=== PATIENT | male | born 2000 | race Caucasian/White ===

== ENCOUNTER 2021-09-15 13:49 | Emergency (ER) | payer SELFPAY ==
[2021-09-15 13:50] VITALS: BP 138/99; PULSE 101; RESP 18; TEMP 36.7; O2SAT 96; BMI 35.9
[2021-09-15 13:55] VITALS: BP 138/99; PULSE 101; RESP 18; TEMP 36.7; O2SAT 96; BMI 35.8
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
[2021-09-15 14:26] VITALS: BP 138/99; PULSE 101; RESP 18; TEMP 36.7; O2SAT 96
== END 2021-09-15 14:55 | disposition home or self-care (01) ==
PROVIDERS: Emergency Provider Nurse Practitioner
DX: S61.411A Laceration without foreign body of right hand, initial encounter (principal)
CPT/HCPCS: 12001; 99213; G0463

== ENCOUNTER 2023-02-14 12:46 | Emergency (ER) | payer SELFPAY ==
[2023-02-14] VITALS (13 sets, daily range): BP systolic 110–139; BP diastolic 58–92; PULSE 54–78; RESP 16–18; TEMP 36.6; O2SAT 95–100; BMI 41.7
--- NOTE | 2023-02-14 13:18 | PC.NURSE ---
Allergy bracelet placed on patient's wrist.
--- NOTE | 2023-02-14 13:28 | HMH.EDGENADL ---
Discharge Plan Disposition Patient Disposition: Home, Self-Care Condition: Good Referrals Follow up/Referrals: Bob Joyce DO [Staff Physician] - See instructions (L foot/ankle pain/sprain, needs follow up) Luis Miguel Thakkar DO [Staff Physician] - See instructions (L foot pain/swelling/fall, needs PCP) Provider,Referral, [Primary Care Provider] - See instructions Activity Restrictions/Add. Instructions Additional Instructions/Restrictions: You were evaluated in the emergency department today for left foot pain. You do not have any fracture, dislocation, or other bony injury. You are appropriate for discharge at this time. You have been referred to orthopedics for outpatient follow-up. Wear the air splint as directed and use the provided crutches to help you get around. Do the range of motion exercises we discussed. Take Tylenol and ibuprofen if needed for pain, do not exceed the recommended daily doses on the bottle. Make an appointment with your primary care physician for reevaluation in 2 to 3 days, you have been referred to Dr. Thakkar for this purpose. Return to the emergency department with any new, worsening, or otherwise concerning symptoms. Clinical Impressions Clinical Impression: Ankle sprain and strain Instructions Patient Instructions: DI for Ankle Sprain Discharge ED Provider: Trino Wright General Adult HPI General Chief complaint: Extremity Injury, Lower Stated complaint: AO10/@home, pain in Lt ankle Time Seen by Provider: 02/14/23 13:05 Mode of Arrival: Ambulatory Source of Information: Patient Limitations: No Limitations Description of Symptoms (Recalled from ER Triage Doc. by RN): Patient reports stepping in a hole 1 week ago and injured his left ankle. States he has been using an jennifer wrap but the pain seems to get worse as the day goes. History of Present Illness HPI narrative: This otherwise healthy 22-year-old male presents to the emergency department with concerns of left foot/ankle pain. Patient states he stepped in a hole 1 week ago and has had pain and swelling in the left foot/ankle since that time. He demonstrates that his pain is across the medial aspect of his left foot/ankle. He is able to wiggle the toes and has sensation throughout. He states he has been taking ibuprofen intermittently for pain. Last dose was yesterday. Patient has the foot wrapped but has been able to walk on it though it is painful and worse by the end of the day. He has not seen anyone for evaluation up until this point. He came today because the pain is not going away and it continues to be persistently swollen. He denies any chronic medical conditions, no daily medications. Related Data Allergies Allergy/AdvReac Type Severity Reaction Status Date / Time acetaminophen [From Vicodin] Allergy Verified 09/15/21 14:10 diclofenac [From Voltaren] Allergy Verified 02/14/23 13:05 hydrocodone [From Vicodin] Allergy Verified 09/15/21 14:10 [facility] Disclaimer: The information contained in this section may have been updated after the patient was seen, as this information can be updated by other users. Social History Smoking Status: Current every day smoker alcohol intake: current current occupational status: other Travel in the last 8 weeks: None ROS Obtained: Yes All systems reviewed & no additional complaints except as documented Constitutional Constitutional: Denies chills, Denies fever(s), Denies headache(s) and Denies weakness Eyes Eyes: Denies change in vision ENT Ears, Nose, Mouth, and Throat: Denies dizziness, Denies headache(s), Denies nasal congestion and Denies sore throat Cardiovascular Cardiovascular: Denies chest pain, Denies dyspnea and Denies leg edema Respiratory Respiratory: Denies cough and Denies dyspnea Gastrointestinal Gastrointestingal: Denies constipation, diarrhea, nausea or vomiting Genitourinary Male Genitourinary: Denies difficulty urinating Musculoskeletal Muscul
--- NOTE | 2023-02-14 13:29 | XR_ITS ---
FINAL REPORT CLINICAL HISTORY: twisted ankle in pain COMPARISON: None FINDINGS: LEFT FOOT: Three views of the left foot were obtained. There is no acute fracture or dislocation. The joint spaces are intact. There is no soft tissue abnormality. IMPRESSION: No acute bony abnormality. Reviewed, Interpreted and Dictated by Good Lemus III, MD Transcribed by Hillary Wylie Authenticated and [facility]
--- NOTE | 2023-02-14 13:29 | XR_ITS ---
FINAL REPORT CLINICAL HISTORY: twisted ankle in pain COMPARISON: None FINDINGS: LEFT ANKLE: Three views of the left ankle were obtained. There is no acute fracture or dislocation. The joint spaces and mortise are intact. Soft tissue swelling is present. IMPRESSION: No acute bony abnormality. Reviewed, Interpreted and Dictated by Good Lemus III, MD Transcribed by Hillary Wylie Authenticated and . [facility]
--- NOTE | 2023-02-14 13:36 | PC.NURSE ---
pt to rad via wheelchair
--- NOTE | 2023-02-14 14:13 | PC.NURSE ---
rad staff reports pt xrays are in locked status
--- NOTE | 2023-02-14 15:40 | PC.NURSE ---
let pt know scans were back waiting for MD to review and go from there, no other needs at this time,call light at bs
== END 2023-02-14 15:55 | disposition home or self-care (01) ==
PROVIDERS: Emergency Provider Emergency Medicine
DX: S93.402A Sprain of unspecified ligament of left ankle, initial encounter (principal); F17.210 Nicotine dependence, cigarettes, uncomplicated; W17.2XXA Fall into hole, initial encounter
CPT/HCPCS: 73610; 73630; 99284

== ENCOUNTER 2023-10-16 21:19 | Emergency (ER) | payer SELFPAY ==
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
[2023-10-16 21:32] VITALS: BP 155/107; PULSE 82; RESP 18; TEMP 36.9; O2SAT 97
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
[2023-10-16 21:41] VITALS: BMI 41.7
[2023-10-16] MEDS: IBUPROFEN 400 MG TABLET 800 MG PO (21:43)
[2023-10-16] MEDS: CYCLOBENZAPRINE 10MG TABLET 10 MG PO (21:43)
[2023-10-16 21:49] VITALS: BP 135/90; PULSE 83; RESP 18; TEMP 36.9; O2SAT 96
== END 2023-10-16 21:51 | disposition home or self-care (01) ==
PROVIDERS: Emergency Provider Student in an Organized Health Care Education/Training Program
DX: S39.011A Strain of muscle, fascia and tendon of abdomen, initial encounter (principal); S46.811A Strain of other muscles, fascia and tendons at shoulder and upper arm level, right arm, initial encounter; S53.401A Unspecified sprain of right elbow, initial encounter; F17.210 Nicotine dependence, cigarettes, uncomplicated; V47.5XXA Car driver injured in collision with fixed or stationary object in traffic accident, initial encounter; Y92.410 Unspecified street and highway as the place of occurrence of the external cause
CPT/HCPCS: 73080; 99283

== ENCOUNTER 2024-05-10 23:23 | Emergency (ER) | payer BC, SELFPAY ==
[2024-05-10 23:36] VITALS: BP 134/96; PULSE 60; RESP 20; TEMP 36.9; O2SAT 97; BMI 44.3
--- NOTE | 2024-05-10 23:40 | PC.NURSE ---
Pt awake alert and oriented x4 Skin pink warm and dry Resp full and easy Speech clear and appropriate Pt opening eye with some difficulty due to pain. No hyphema noted, pupil round
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
[2024-05-11 00:32] VITALS: BP 134/96; PULSE 60; RESP 20; TEMP 36.8; O2SAT 97
[2024-05-11] MEDS: TETRACAINE 0.5% OPTH SOL 15ML OP (00:36)
[2024-05-11] MEDS: FLUORESCEIN SODIUM 1MG STRIP 1 MG OP (00:36)
[2024-05-11] MEDS: ERYTHROMYCIN BASE 1 GM OINT...G. OP (00:36)
== END 2024-05-11 00:34 | disposition short-term general hospital (02) ==
PROVIDERS: Emergency Provider Emergency Medicine
DX: S05.02XA Injury of conjunctiva and corneal abrasion without foreign body, left eye, initial encounter (principal); H57.12 Ocular pain, left eye; X58.XXXA Exposure to other specified factors, initial encounter; Y93.89 Activity, other specified
CPT/HCPCS: 99283

== ENCOUNTER 2024-08-06 23:38 | Emergency (ER) | payer BC, SELFPAY ==
--- NOTE | 2024-08-06 23:59 | HMH.EDGENADL ---
Discharge Plan Disposition Patient Disposition: Home, Self-Care Prescriptions Prescriptions: New amoxicillin-pot clavulanate 875-125 mg tablet 1 tab PO BID 7 Days Qty: 14 0RF No Action cyclobenzaprine 10 mg tablet 10 mg PO TID PRN (Reason: muscle spasm) 5 Days Qty: 15 0RF ibuprofen 800 mg tablet 800 mg PO TID PRN (Reason: pain) 7 Days Qty: 20 0RF Referrals Follow up/Referrals: Provider,Referral, MD [Primary Care Provider] - See instructions Activity Restrictions/Add. Instructions Additional Instructions/Restrictions: Please take antibiotics as prescribed for treatment of dental infection. Please call around tomorrow and see dentist as soon as possible. You can always go to the [facility] walk-in clinic as well. You can google their information. Please take Tylenol and ibuprofen as needed for pain, 1 g of Tylenol and 600 mg of ibuprofen every 6 hours either together or staggered. Clinical Impressions Clinical Impression: Dental infection Print Language Print Language: Puerto Rican Discharge ED Provider: Jamal Holguin General Adult HPI General Chief complaint: Dental/Oral Stated complaint: tooth pain Time Seen by Provider: 08/06/24 23:59 History of Present Illness HPI narrative: 24-year-old male with no reported past medical history presents for dental pain. Is been ongoing for the last 4 days is getting worse. He has not taken anything prior to arrival. He is not aware of any bad teeth, both the upper and lower teeth on the right side her. Related Data Previous Rx's ?Medication ?Instructions ?Recorded cyclobenzaprine 10 mg tablet 10 mg PO TID PRN muscle spasm 5 10/16/23 days #15 tabs ibuprofen 800 mg tablet 800 mg PO TID PRN pain 7 days #20 10/16/23 tabs amoxicillin 875 mg-potassium 1 tab PO BID 7 days #14 tabs 08/07/24 clavulanate 125 mg tablet Allergies Allergy/AdvReac Type Severity Reaction Status Date / Time acetaminophen (From Vicodin) Allergy Verified 09/15/21 14:10 diclofenac (From Voltaren) Allergy Verified 02/14/23 13:05 hydrocodone (From Vicodin) Allergy Verified 09/15/21 14:10 [facility] Disclaimer: The information contained in this section may have been updated after the patient was seen, as this information can be updated by other users. Social History (Updated 02/14/23 @ 16:29 by Trino Wright MD) Smoking Status: Current every day smoker alcohol intake: current current occupational status: other Travel in the last 8 weeks: None Have you lived/traveled outside US in past 30 days?: No Contact w/someone who lives/traveled outside US past 30 days?: No Exposure to someone with infectious disease in past 14 days?: No Do you have a fever (greater than 100.4 F or 38 C)?: No Have you tested positive for COVID-19: No Exposed to someone with COVID-19 in past 14 days?: No Do you have a sore throat?: No Do you have a cough?: No Do you have any weakness?: No Do you have any diarrhea?: No Are you experiencing any unusual bleeding?: No Do you have any muscle aches/pain?: No Do you have any abdominal pain?: No Are you experiencing loss of taste or smell?: No ROS Obtained: Yes All systems reviewed & no additional complaints except as documented Physical Exam General General appearance: alert and in no apparent distress Head Head exam: atraumatic, normocephalic and other (Erythema, tenderness and poor dentition with the appearance of interrupting teeth in the right maxilla. Patient also has tenderness to palpation of the mandibular teeth, though not appear infected) Eye Eye exam: Present normal appearance, PERRL and EOMI ENT ENT exam: Present normal oropharynx and normal external ear exam Neck Neck exam: Present normal inspection and full ROM Chest Chest inspection: Present normal inspection and symmetric chest wall rise; Absent tenderness Respiratory Respiratory exam: Present normal lung sounds bilaterally; Absent respiratory distress Cardiovascular Cardiovascular exam: Present regular rate and normal rhythm Abdominal Exam Abdominal exam: Present soft; Absent distention, tenderness or guarding Extremities Exam Extremities exam: Present normal inspection; Absent edema or joint swelling Back Exam Back exam: Present normal inspection; Absent tenderness Neurological Exam Neurological exam: Present alert and oriented X3; Absent motor sensory deficit Psychiatric Psychiatric exam: Present normal affect and normal mood Skin Skin exam: Present warm, dry and normal color Lymphatic Lymphatic Findings: no adenopathy Medical Decision Making Medical Records Medical records reviewed: Yes I reviewed the patient's medical records. Screening: Per USPSTF and CDC recommendations, given the prevalence of disease in our region, it is our hospital?s policy to screen for HIV and viral Hepatitis for all patients aged 18 and over and those with ongoing risk factors. [place] Inquiry Pt receiving controlled substance: No Ryland was queried for this patient: No Vital Signs: 08/07/24 00:08 Temperature 98.1 F Temperature Source Oral Pulse Rate [Apical] 66 Respiratory Rate 20 Blood Pressure [Right Arm] 135/84 Blood Pressure Mean [Right Arm] 101 02 Sat by Pulse Oximetry 95 Oxygen Delivery Method Room Air Lab Data Lab results reviewed: Yes I reviewed the patient's lab results. Orders (Tests/Meds): ED MEDICATIONS Generic Name Dose Route Start Last Admin Trade Name Freq PRN Reason Stop Dose Admin Acetaminophen 1,000 mg 08/07/24 00:54 Acetaminophen 500mg Tab PO 08/07/24 00:55 ONCE ONE Ibuprofen 600 mg 08/07/24 00:54 Ibuprofen 600 Mg Tablet PO 08/07/24 00:55 ONCE ONE Discontinued Medications Generic Name Dose Route Start Last Admin Trade Name Freq PRN Reason Stop Dose Admin Amoxicillin/Clavulanate Potassium 1 each 08/07/24 00:27 08/07/24 00:36 Amoxicillin/Clavulanate Potassium 875/125mg Tablet PO 08/07/24 00:28 1 each ONCE ONE Administration Bupivacaine HCl/Epinephrine Bitart 10 ml 08/07/24 00:16 08/07/24 00:36 Bupivacaine 0.5% W/Epi 1:200,000 10ml Vial IJ 08/07/24 00:17 10 ml ONCE ONE Administration Medical Decision Narrative: 24-year-old male without significant past medical history presents for dental pain for a few days. No fever.. History was obtained via interactive discussion with patient. On arrival, patient is [afebrile, hemodynamically stable, satting appropriately, alert, oriented x4, GCS 15], moving all extremities spontaneously. Full physical exam performed and significant for dental findings as documented above. Differential includes but is not limited to dental fracture, dental infection, abscess. Patient was given dental block, Tylenol, ibuprofen and Augmentin for symptomatic management and correction of underlying abnormalities. Patient discharged in stable condition with return precautions instructions follow-up with dentistry as soon as possible. Discharged with prescription for Augmentin. Procedures Risk/Benefits of Procedure(s) Were Explained: Yes Nerve Block Nerve Block 1: Local Anesthetic: bupivacaine 0.5% and with epi Amount of anesthesia used (mL): 6 Intraoral Nerve Block: superior alveolar Procedure Successful: Yes Patient Tolerated Procedure: well and no complications Critical Care Critical Care Time Critical Care Time: No
[2024-08-07 00:08] VITALS: BP 135/84; PULSE 66; RESP 20; TEMP 36.7; O2SAT 95; BMI 41.7
[2024-08-07] MEDS: EPI IJ (00:36)
[2024-08-07] MEDS: AMOXICILLIN/CLAVULANATE POTASSIUM 875/125MG TABLET 1 EACH PO (00:36)
[2024-08-07] MEDS: BUPIVACAINE 0.5% IJ (00:36)
[2024-08-07] MEDS: ACETAMINOPHEN 500MG TAB 1000 MG PO (01:02)
[2024-08-07] MEDS: IBUPROFEN 600 MG TABLET PO (01:02)
[2024-08-07 01:11] VITALS: BP 128/78; PULSE 87; RESP 18; TEMP 37.2; O2SAT 98
== END 2024-08-07 01:13 | disposition home or self-care (01) ==
PROVIDERS: Emergency Provider Emergency Medicine
DX: K08.89 Other specified disorders of teeth and supporting structures (principal)
CPT/HCPCS: 99283

== ENCOUNTER 2024-12-31 17:43 | Emergency (ER) | payer BC, SELFPAY ==
[2024-12-31 17:44] VITALS: BP 163/90; PULSE 94; RESP 22; TEMP 36.6; O2SAT 98; BMI 46.0
--- NOTE | 2024-12-31 17:48 | ECG_ITS ---
APPROVED REPORT Exam: Resting ECG HR:92 bpm ECG Measurements Heart Rate 92 AXES MA 120 P 17 QRSd 105 QRS 23 QT 330 T 40 QTc 380 Conclusion SINUS RHYTHM NORMAL ECG UNCONFIRMED REPORT Electronically signed by : KATHLEEN SMITH, 01/01/2025 06:37:31
--- NOTE | 2024-12-31 17:50 | XR_ITS ---
PROCEDURE INFORMATION: Exam: XR Chest Exam date and time: 12/31/2024 6:42 PM Age: 24 years old Clinical indication: Pain; Chest pressure; Additional info: Chest pain TECHNIQUE: Imaging protocol: Radiologic exam of the chest. Views: 1 view. COMPARISON: No relevant prior studies available. FINDINGS: Lungs: Normal. Pleural spaces: Normal. Heart/Mediastinum: Normal. Bones/joints: No acute abnormality. IMPRESSION: No acute findings.
--- NOTE | 2024-12-31 18:00 | HMH.EDCP ---
Discharge Plan Disposition Patient Disposition: Home, Self-Care Condition: Good Prescriptions Prescriptions: No Action cyclobenzaprine 10 mg tablet 10 mg PO TID PRN (Reason: muscle spasm) 5 Days Qty: 15 0RF ibuprofen 800 mg tablet 800 mg PO TID PRN (Reason: pain) 7 Days Qty: 20 0RF amoxicillin-pot clavulanate 875-125 mg tablet 1 tab PO BID 7 Days Qty: 14 0RF Referrals Follow up/Referrals: Provider,Referral, MD [Primary Care Provider, Medical] - See instructions Luis Miguel Thakkar DO [Staff Physician, Family Practice] - See instructions Activity Restrictions/Add. Instructions Additional Instructions/Restrictions: Please return to the emergency department with any worsening signs or symptoms. Please utilize ibuprofen and Tylenol as needed for symptomatic relief. Please follow-up with your PCP in the coming days/weeks. Instructions Patient Instructions: DI for Atypical Chest Pain Print Language Print Language: Azeri Discharge ED Provider: Stephanie Irwin General Chief Complaint: Chest Pain Stated Complaint: chest pain Time Seen by Provider: 12/31/24 17:55 Mode of Arrival: Ambulatory Source of Information: Patient Limitations: No Limitations Description of Symptoms (Recalled from ER Triage Doc. by RN): Chest pain started 1545, tight stabbing pain running up neck. When the pain starts he experiences shortness of breath. pt also complains of facial numbess. 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 No trauma or injury per history. 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 States this was several years ago, denies any alcohol use, denies any other real relevant past medical history takes no other medications daily at home. Initial triage vitals are unremarkable. Please note that above description of symptoms, in this electronic medical record under categorization of recalled from ER triage doctor by RN are reflective of an initial nursing assessment, however, is not reflective of my full history and physical exam that was personally taken and clarified. Consequentially, this preceding description of symptoms, which may include the patient's categorized chief complaint in the EMR, do not reflect my personal clinical impression, and the ultimate description of history of present illness and patient stated complaints should be deferred to this section of the note. Unless stated otherwise or congruent with this section of the note, additional signs, symptoms, or incongruence should be interpreted as inaccurate with my clinical impression. Related Data Previous Rx's ?Medication ?Instructions ?Recorded cyclobenzaprine 10 mg tablet 10 mg PO TID PRN muscle spasm 5 10/16/23 days #15 tabs ibuprofen 800 mg tablet 800 mg PO TID PRN pain 7 days #20 10/16/23 tabs amoxicillin 875 mg-potassium 1 tab PO BID 7 days #14 tabs 08/07/24 clavulanate 125 mg tablet Allergies Allergy/AdvReac Type Severity Reaction Status Date / Time acetaminophen (From Vicodin) Allergy Verified 09/15/21 14:10 diclofenac (From Voltaren) Allergy Verified 02/14/23 13:05 hydrocodone (From Vicodin) Allergy Verified 09/15/21 14:10 [facility] Disclaimer: The information contained in this section may have been updated after the patient was seen, as this information can be updated by other users. Social History (Updated 02/14/23 @ 16:29 by Trino Wright MD) Smoking Status: Current every day smoker alcohol intake: current current occupational status: other Travel in the last 8 weeks?: None Have you lived/traveled outside US in past 30 days?: No Contact w/someone who lives/traveled outside US past 30 days?: No Exposure to someone with infectious disease in past 14 days?: No Do you have a fever (greater than 100.4 F or 38 C)?: No Have you tested positive for COVID-19?: No Exposed to someone with COVID-19 in past 14 days?: No Do you have a sore throat?: No Do you have a cough?: No Do you have any weakness?: No Do you have any diarrhea?: No Are you experiencing any unusual bleeding?: No Do you have any muscle aches/pain?: No Do you have any abdominal pain?: No Are you experiencing loss of taste or smell?: No ROS Obtained: Yes All systems reviewed & no additional complaints except as documented Physical Exam General General appearance: alert and in no apparent distress Head Head exam: atraumatic and normocephalic Eye Eye exam: Present normal appearance, PERRL and EOMI Neck Neck exam: Present full ROM; Absent meningismus Chest Chest inspection: Present normal inspection and tenderness Respiratory Respiratory exam: Absent respiratory distress, wheezes, stridor, accessory muscle use or prolonged expiratory phase Cardiovascular Cardiovascular exam: Present normal rhythm and other (Pulses equal and symmetric in bilateral upper and lower extremities) Abdominal Exam Abdominal exam: Absent distention Extremities Exam Extremities exam: Absent edema Neurological Exam Neurological exam: Present alert Psychiatric Psychiatric exam: Present normal affect Skin Skin exam: Present warm and dry HEART Score HEART Score HEART Score assessment performed?: Yes HEART Score: 0 Critical Care Critical Care Time Critical Care Time: No Medical Decision Making Medical Records Medical records reviewed: Yes I reviewed the patient's medical records. Ryland Inquiry Pt receiving controlled substance: Yes Ryland was queried for this patient: No Reason not queried -: Emergent pt cond-no time Risks and benefits of using a controlled substance: were discussed with pt by me Vital Signs Vital Signs: 12/31/24 17:44 Temperature 97.9 F Temperature Source Temporal Artery Scan Pulse Rate [Right] 94 H Respiratory Rate 22 Blood Pressure [Right Arm] 163/90 H Blood Pressure Mean [Right Arm] 114 Blood Pressure Source [Right Arm] Automatic Cuff 02 Sat by Pulse Oximetry 98 Oxygen Delivery Method Room Air Lab Data Lab results reviewed: Yes I reviewed the patient's lab results. Labs: Lab Results 12/31/24 18:16: WBC 11.5 H, RBC 4.77, Hgb 13.8 L, Hct 41.2 L, MCV 86.4, MCH 28.9, MCHC 33.5, RDW 12.6, Plt Count 242, MPV 9.0, Neut % (Auto) 52.4, Lymph % (Auto) 36.8, Blaine % (Auto) 7.4, Eos % (Auto) 2.4, Baso % (Auto) 0.7, Neut # (Auto) 6.0, Lymph # (Auto) 4.2, Blaine # (Auto) 0.9, Eos # (Auto) 0.3, Baso # (Auto) 0.1, PT 10.9, INR 0.98, D-Dimer 0.31, Sodium 141, Potassium 4.0, Chloride 105, Carbon Dioxide 25, Anion Gap 15.0, BUN 13, Creatinine 1.00, Estimated Creat Clear 124, Estimated GFR 91, Est GFR ( Amer) 110, Glucose 110 H, Calcium 9.5, Total Bilirubin 0.4, AST 36, ALT 47, Alkaline Phosphatase 73, Troponin I < 0.01, NT-Pro-B Natriuret Pep < 20.0, Total Protein 7.6, Albumin 4.6, Globulin 3.0, Albumin/Globulin Ratio 1.5 12/31/24 20:55: Troponin I < 0.01 12/31/24 18:16 12/31/24 18:16 Response Orders (Tests/Meds): ED MEDICATIONS Discontinued Medications Generic Name Dose Route Start Last Admin Trade Name Freq PRN Reason Stop Dose Admin Aspirin 324 mg 12/31/24 17:59 12/31/24 18:45 Aspirin 81mg Chewable Tablet PO 12/31/24 18:00 324 mg ONCE ONE Administration Morphine Sulfate 4 mg 12/31/24 18:00 12/31/24 18:45 Morphine 4mg/Ml Syringe IV 12/31/24 18:01 4 mg ONCE ONE Administration Ondansetron HCl 4 mg 12/31/24 18:00 12/31/24 18:46 Ondansetron 4mg/2ml Vial IV 12/31/24 18:01 4 mg ONCE ONE Administration ORDERS Category Date Time Status XR chest portable Stat Exams 12/31/24 17:50 Completed Complete Blood Count Auto Diff Stat Lab 12/31/24 18:16 Completed Comprehensive Metabolic Panel Stat Lab 12/31/24 18:16 Completed D-Dimer Stat Lab 12/31/24 18:16 Completed NT Pro Brain Natriuretic Pep. Stat Lab 12/31/24 18:16 Completed PT INR [Prothrombin Time INR] Stat Lab 12/31/24 18:16 Completed Troponin I Q3H Lab 12/31/24 20:55 Completed Troponin I Q3H Lab 01/01/25 00:00 Ordered Troponin I Stat Lab 12/31/24 18:16 Completed MDM Narrative Medical Decision Narrative: 24-year-old male presents emerged from with chest pain, differential diagnose include but not limited to, ACS, cardiac arrhythmia, electrolyte disturbance, PE, pneumothorax, gastritis, GERD, panic attack, anxiety type reaction, costochondritis, other musculoskeletal chest pain, among others. I discussed this patient's case with the attending physician Dr. Irwin Will obtain basic laboratory studies, EKG, chest x-ray, D-dimer proBNP PT/INR, troponin, will give 3 to 4 mg p.o. aspirin for pain, 4 mg IV morphine for pain as well as 4 mg IV Zofran for nausea. CBC is notable for mild leukocytosis 11.5, otherwise unremarkable CBC Coags within normal limits D-dimer 0.31, thus ruling out VTE/PE proBNP within normal limits Troponin initial is less than 0.01, otherwise unremarkable CMP I reviewed the patient's chest x-ray along the corresponding radiologic report no acute findings. Repeat troponin within normal limits at less than 0.01. Heart score of 0, I discussed the results with the patient the bedside patient is currently chest pain-free, patient will need to return to the emerged with any worsening signs or symptoms, strict ED return precaution given. Patient to follow with PCP in the upcoming days/weeks. Patient voiced understanding and agreement with current treatment plan/discharge plan. Most likely atypical chest pain,/noncardiac cause of patient's chest pain.
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
[2024-12-31 18:20] LABS: Hematocrit 41.2 % (42.0-52.0); Hemoglobin 13.8 g/dL (14.1-18.0); Immature Granulocytes % 0.3 %; Mean Corpuscular HGB Conc 33.5 g/dL (31.8-35.4); Mean Corpuscular Hemoglobin 28.9 pg (27.0-31.2); Mean Corpuscular Volume 86.4 fl (80-94); Nucleated Red Blood Cells % 0 %; Platelet Count 242 K/mm3 (142-424); Red Blood Count 4.77 M/mm3 (4.60-6.20); Red Cell Distribution Width-SD 39.8 fL; White Blood Count 11.5 K/mm3 (4.8-10.8)
[2024-12-31 18:34] LABS: INR 0.98 (0.9-1.1); Prothrombin Time 10.9 seconds (10.1-12.5)
[2024-12-31 18:40] LABS: D-Dimer 0.31 ug/mL (0.0-0.5)
[2024-12-31] MEDS: ASPIRIN 81MG CHEWABLE TABLET 324 MG PO (18:45)
[2024-12-31] MEDS: MORPHINE 4MG/ML SYRINGE 4 MG IV (18:45)
[2024-12-31] MEDS: ONDANSETRON 4MG/2ML VIAL 4 MG IV (18:46)
[2024-12-31 18:58] LABS: NT Pro Brain Natriuretic Pep. < 20.0 pg/mL (0-125)
[2024-12-31 19:13] LABS: Albumin Level 4.6 g/dl (3.5-5.0); Chloride 105 mmol/L (98-107); Sodium 141 mmol/L (136-145)
[2024-12-31 19:14] LABS: Potassium 4.0 mmoL/L (3.5-5.1)
[2024-12-31 19:16] LABS: Alanine Aminotransferase 47 U/L (12-78); Albumin/Globulin Ratio 1.5 (1.1-1.8); Alkaline Phosphatase 73 U/L (38-126); Anion Gap 15.0 mEq/L (5-15); Aspartate Amino Transferase 36 U/L (17-59); Bilirubin,Total 0.4 mg/dl (0.2-1.3); Blood Urea Nitrogen 13 mg/dl (9-20); Carbon Dioxide 25 mmol/L (22.0-30.0); Creatinine Clearance Estimated 124 mL/min (50-200); Creatinine,Serum 1.00 mg/dl (0.66-1.25); Estimated Glomerular Filt Rate 91 ml/min (>60); GFR (African American) 110 ML/MIN (>60); Globulin 3.0 g/dL (1.3-3.2); Total Protein,Serum 7.6 g/dl (6.3-8.2)
[2024-12-31 19:17] LABS: Calcium 9.5 mg/dl (8.4-10.2); Glucose 110 mg/dl (74-100)
[2024-12-31 19:29] LABS: Troponin I < 0.01 ng/ml (0.00-0.034)
[2024-12-31 21:35] LABS: Troponin I < 0.01 ng/ml (0.00-0.034)
[2024-12-31 21:57] VITALS: BP 136/84; PULSE 78; RESP 18; TEMP 36.7; O2SAT 98
== END 2024-12-31 21:57 | disposition home or self-care (01) ==
PROVIDERS: Physician Assistant; Emergency Provider Student in an Organized Health Care Education/Training Program
DX: R07.89 Other chest pain (principal); F17.210 Nicotine dependence, cigarettes, uncomplicated
CPT/HCPCS: 71045; 80053; 83880; 84484; 85025; 85378; 85610; 93005; 96374; 96375; 99285; J2270; J2405

== ENCOUNTER 2025-01-25 19:12 | Emergency (ER) | payer BC, SELFPAY ==
[2025-01-25 19:18] VITALS: BP 148/107; PULSE 108; RESP 20; TEMP 37.7; O2SAT 97; BMI 43.6
[2025-01-25 19:30] LABS: Coronavirus 19, PCR Not Detected (NotDetected); Influenza A, PCR Not Detected (NotDetected); Influenza B, PCR Not Detected (NotDetected)
--- NOTE | 2025-01-25 19:32 | HMH.EDGENADL ---
Discharge Plan Disposition Patient Disposition: Home, Self-Care Condition: Good Prescriptions Prescriptions: No Action cyclobenzaprine 10 mg tablet 10 mg PO TID PRN (Reason: muscle spasm) 5 Days Qty: 15 0RF ibuprofen 800 mg tablet 800 mg PO TID PRN (Reason: pain) 7 Days Qty: 20 0RF amoxicillin-pot clavulanate 875-125 mg tablet 1 tab PO BID 7 Days Qty: 14 0RF Referrals Follow up/Referrals: Provider,Referral, MD [Primary Care Provider, Medical] - See instructions Activity Restrictions/Add. Instructions Additional Instructions/Restrictions: Take Tylenol and ibuprofen as needed for your symptoms at home. Return to the emergency department for any acute or worsening symptoms. Return to the emergency department for acute worsening headache that is prolonged for multiple days, if you are unable to tolerate oral intake or if you have any other acute concerns. Clinical Impressions Clinical Impression: Viral syndrome Stand Alone Forms Stand Alone Forms: Work/School Release Print Language Print Language: Japanese Discharge ED Provider: Stephanie Irwin Adult HPI General Chief complaint: Upper Respiratory Infection Stated complaint: fever, body aches Time Seen by Provider: 01/25/25 19:32 Mode of Arrival: Ambulatory Source of Information: Patient Description of Symptoms (Recalled from ER Triage Doc. by RN): Pt presents for evaluation of feeling feverish but didn't check temperature home, productive cough, and generalized body aches x 3 days History of Present Illness HPI narrative: Patient is an otherwise healthy 24-year-old male who presented to the emergency department with upper respiratory symptoms for 3 days. Patient states that he has had bodyaches chills intermittent headaches. Patient has had a cough. Patient has not had any chest pain or shortness of breath. Patient denies any fevers. Patient denies any abdominal pain nausea vomiting or diarrhea. Patient states that he is worried he may have COVID and needs it checked prior to going back to work. Patient has not taken any medications prior to arrival for his symptoms. Related Data Previous Rx's ?Medication ?Instructions ?Recorded cyclobenzaprine 10 mg tablet 10 mg PO TID PRN muscle spasm 5 10/16/23 days #15 tabs ibuprofen 800 mg tablet 800 mg PO TID PRN pain 7 days #20 10/16/23 tabs amoxicillin 875 mg-potassium 1 tab PO BID 7 days #14 tabs 08/07/24 clavulanate 125 mg tablet Allergies Allergy/AdvReac Type Severity Reaction Status Date / Time acetaminophen (From Vicodin) Allergy Verified 09/15/21 14:10 diclofenac (From Voltaren) Allergy Verified 02/14/23 13:05 hydrocodone (From Vicodin) Allergy Verified 09/15/21 14:10 [facility] Disclaimer: The information contained in this section may have been updated after the patient was seen, as this information can be updated by other users. Social History (Updated 02/14/23 @ 16:29 by Trino Wright MD) Smoking Status: Current every day smoker alcohol intake: current current occupational status: other Travel in the last 8 weeks?: None Have you lived/traveled outside US in past 30 days?: No Contact w/someone who lives/traveled outside US past 30 days?: No Exposure to someone with infectious disease in past 14 days?: No Do you have a fever (greater than 100.4 F or 38 C)?: Yes Have you tested positive for COVID-19?: No Exposed to someone with COVID-19 in past 14 days?: No Do you have a sore throat?: No Do you have a cough?: No Do you have any weakness?: No Do you have any diarrhea?: No Are you experiencing any unusual bleeding?: No Do you have any muscle aches/pain?: Yes Do you have any abdominal pain?: No Are you experiencing loss of taste or smell?: No ROS Obtained: Yes All systems reviewed & no additional complaints except as documented and Yes Systems reviewed as appropriate & no additional complaints except as documented Physical Exam General General appearance: alert and in no apparent distress Head Head exam: atraumatic, normocephalic and normal inspection Eye Eye exam: Present normal appearance, PERRL and EOMI; Absent scleral icterus ENT ENT exam: Present normal exam and normal external ear exam Neck Neck exam: Present normal inspection and full ROM; Absent tenderness or meningismus Chest Chest inspection: Present normal inspection and symmetric chest wall rise Respiratory Respiratory exam: Present normal lung sounds bilaterally; Absent respiratory distress or wheezes Cardiovascular Cardiovascular exam: Present regular rate, normal rhythm and normal heart sounds Abdominal Exam Abdominal exam: Present soft and distention; Absent tenderness, guarding or rebound Extremities Exam Extremities exam: Present normal inspection and full ROM Back Exam Back exam: Present normal inspection and full ROM Neurological Exam Neurological exam: Present alert and oriented X3 Psychiatric Psychiatric exam: Present normal affect and normal mood Skin Skin exam: Present warm and dry Medical Decision Making Medical Records Medical records reviewed: Yes I reviewed the patient's medical records. Screening: Per USPSTF and CDC recommendations, given the prevalence of disease in our region, it is our hospital?s policy to screen for HIV and viral Hepatitis for all patients aged 18 and over and those with ongoing risk factors. Ryland Inquiry Pt receiving controlled substance: No Vital Signs: 01/25/25 19:18 01/25/25 21:02 Temperature 99.8 F H 98.7 F Temperature Source Oral Oral Pulse Rate 82 Pulse Rate [Right] 108 H Respiratory Rate 20 18 Blood Pressure 128/72 Blood Pressure [Right Arm] 148/107 H Blood Pressure Mean [Right Arm] 120 Blood Pressure Source Automatic Cuff Blood Pressure Source [Right Arm] Automatic Cuff Blood Pressure Position Sitting Blood Pressure Position [Right Arm] Sitting 02 Sat by Pulse Oximetry 97 Oxygen Delivery Method Room Air Room Air Lab Data Lab results reviewed: Yes I reviewed the patient's lab results. Lab Results 01/25/25 19:22: SARS-CoV-2 (PCR) Not detected, Influenza A Untype (PCR) Not detected, Influenza Type B (PCR) Not detected Orders (Tests/Meds): ED MEDICATIONS Discontinued Medications Generic Name Dose Route Start Last Admin Trade Name Jh PRN Reason Stop Dose Admin Acetaminophen 325 mg 01/25/25 19:47 01/25/25 19:56 Acetaminophen 325mg Tab PO 01/25/25 19:48 325 mg ONCE ONE Administration Acetaminophen/Butalbital/Caffeine 2 each 01/25/25 19:45 01/25/25 19:54 Butalb/Acetaminophen/Caffeine 50mg/325mg/40mg Tab PO 01/25/25 19:46 2 each ONCE ONE Administration Ibuprofen 800 mg 01/25/25 19:46 01/25/25 19:55 Ibuprofen 800 Mg Tablet PO 01/25/25 19:47 800 mg ONCE ONE Administration ORDERS Category Date Time Status CXR 2 view (NOT portable) [XR chest 2V] Stat Exams 01/25/25 19:39 Completed Rapid PCR Covid and Flu A/B Stat Lab 01/25/25 19:22 Completed Medical Decision Narrative: Patient is an otherwise healthy 24-year-old male who presented to the emergency department with bodyaches, subjective fevers, chills, intermittent headaches. As well as cough. On arrival, patient was hemodynamically stable with normal vital signs. Differential includes but not limited to: Viral syndrome, pneumonia, bronchitis, tension headache, amongst others. Respiratory swab was sent, chest x-ray was obtained and patient was given medications for his symptoms. Patient's respiratory swab is negative for COVID flu and RSV. Chest x-ray was reviewed and interpreted by myself and showed no acute focal consolidation, pneumothorax, pleural effusion or other acute cardiopulmonary process. After Tylenol, ibuprofen and Fioricet, patient's headache is resolved. Patient was able to tolerate oral intake at bedside. Patient had full range of motion of his neck patient was very well-appearing low concern for serious bacterial follow-up pathology such as bacterial meningitis. Patient had a nonfocal neuroexam, CT imaging of the head did not likely indicated. Patient was sent with symptomatic management and discharged home in stable condition. Critical Care Critical Care Time Critical Care Time: No
--- NOTE | 2025-01-25 19:39 | XR_ITS ---
PROCEDURE INFORMATION: Exam: XR Chest Exam date and time: 01/25/2025 7:49 PM Age: 24 years old Clinical indication: Shortness of breath TECHNIQUE: Imaging protocol: Radiologic exam of the chest. Views: 2 views. COMPARISON: CR XR CHEST PORTABLE 12/31/2024 6:42 PM FINDINGS: Lungs: 12 mm nodular density noted in the left upper chest overlying the overlap of the anterior 3rd rib and posterior 6th rib. There are findings concerning for mild infiltrate in the medial portion of the right lower lung. Lung volumes appear normal-appearing Pleural spaces: Unremarkable. No pleural effusion. No pneumothorax. Heart/Mediastinum: Unremarkable. No cardiomegaly. Bones/joints: Unremarkable. Soft tissues: IMPRESSION: 1. Questionable mild right lower lobe infiltrate 2. 12 mm nodular density projecting over the left upper lung, possibly confluence of shadows recently later. Correlation with CT chest recommended.
--- OUTSIDE RECORDS SUMMARY | 2025-01-25 19:42 | XMS_ITS | Clinical Summary ---
Author Organization 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
[2025-01-25] MEDS: BUTALB/ACETAMINOPHEN/CAFFEINE 50MG/325MG/40MG TAB 2 EACH PO (19:54)
[2025-01-25] MEDS: IBUPROFEN 800 MG TABLET PO (19:55)
[2025-01-25] MEDS: ACETAMINOPHEN 325MG TAB 325 MG PO (19:56)
[2025-01-25 21:02] VITALS: BP 128/72; PULSE 82; RESP 18; TEMP 37.1; O2SAT 98
== END 2025-01-25 21:09 | disposition home or self-care (01) ==
PROVIDERS: Emergency Provider Student in an Organized Health Care Education/Training Program
DX: R51.9 Headache, unspecified (principal); R50.9 Fever, unspecified; B34.9 Viral infection, unspecified
CPT/HCPCS: 71046; 87636; 99283

== ENCOUNTER 2025-02-09 20:09 | Observation (INO) | payer BC, SELFPAY ==
[2025-02-09 20:19] VITALS: BP 195/131; PULSE 84; RESP 18; TEMP 36.8; O2SAT 100; BMI 42.3
--- NOTE | 2025-02-09 20:34 | ED_ITS ---
<Statement entered by Kayley Mcclain MD - 02/09/25 22:36> I was consulted by the JOSE, and we discussed the complexity of the problems being addressed. I approved the treatment and management plan for this patient's care in the emergency department, thus performing a substantive portion of the medical decision making. Kayley Mcclain MD, SOFIA, FACEP Discharge Plan Disposition Patient Disposition: Admitted Condition: Good Prescriptions Prescriptions: No Action cyclobenzaprine 10 mg tablet 10 mg PO TID PRN (Reason: muscle spasm) 5 Days Qty: 15 0RF ibuprofen 800 mg tablet 800 mg PO TID PRN (Reason: pain) 7 Days Qty: 20 0RF amoxicillin-pot clavulanate 875-125 mg tablet 1 tab PO BID 7 Days Qty: 14 0RF Referrals Follow up/Referrals: Provider,Referral, [Primary Care Provider, Medical] - See instructions Clinical Impressions Clinical Impression: Acute upper gastrointestinal bleeding Print Language Print Language: Tamazight Discharge ED Provider: Kayley Mcclain General Adult HPI General Chief complaint: Nausea/Vomiting/Diarrhea Stated complaint: vomited blood Time Seen by Provider: 02/09/25 20:33 Mode of Arrival: Ambulatory Source of Information: Patient Description of Symptoms (Recalled from ER Triage Doc. by RN): patient presents for coughing up blood this reportedly started an hour ago. patient stated he started feeling bad today, ultimately vomited up blood clots and blew his nose which was straight blood . patient stated the clots were nickel sized and dark red . History of Present Illness HPI narrative: 24-year-old male presents emergency department with complaints of vomiting up blood clots that started earlier this evening. Patient states he was getting a tattoo when he got up and started feeling bad. He states when he went to the restroom he vomited up dark red blood clots. He reports that he has had blood on the tissues when blowing his nose for the past couple of days. Patient states he used to drink heavily. He states that he was also diagnosed with nonalcoholic cirrhosis of the liver. Patient denies any bloody stools or melena. He also denies coffee-ground emesis. He states he does not take any daily medications. Related Data Previous Rx's ?Medication ?Instructions ?Recorded cyclobenzaprine 10 mg tablet 10 mg PO TID PRN muscle s pasm 5 10/16/23 days #15 tabs ibuprofen 800 mg tablet 800 mg PO TID PRN pain 7 day s #20 10/16/23 tabs amoxicillin 875 mg-potassium 1 tab PO BID 7 days #14 t abs 08/07/24 clavulanate 125 mg tablet Allergies Allergy/AdvReac Type Severity Reaction Status Date / Time acetaminophen (From Vicodin) Allergy Verified 09/15/21 14:10 diclofenac (From Voltaren) Allergy Verified 02/14/23 13:05 hydrocodone (From Vicodin) Allergy Verified 09/15/21 14:10 PFSH [facility] Disclaimer: The information contained in this section may have been updated after the patient was seen, as this information can be updated by other users. Social History (Updated 02/14/23 @ 16:29 by Trino Wright MD) Smoking Status: Current every day smoker alcohol intake: current current occupational status: other Travel in the last 8 weeks?: None Have you lived/traveled outside US in past 30 days?: No Contact w/someone who lives/traveled outside US past 30 days?: No Exposure to someone with infectious disease in past 14 days?: No Do you have a fever (greater than 100.4 F or 38 C)?: No Have you tested positive for COVID-19?: No Exposed to someone with COVID-19 in past 14 days?: No Do you have a sore throat?: No Do you have a cough?: No Do you have any weakness?: No Do you have any diarrhea?: No Are you experiencing any unusual bleeding?: No Do you have any muscle aches/pain?: No Do you have any abdominal pain?: No Are you experiencing loss of taste or smell?: No ROS Obtained: Yes other ENT Ears, Nose, Mouth, and Throat: Reports epistaxis Gastrointestinal Gastrointestingal: Reports hematemesis Physical Exam Narrative Physical exam: General: Awake, aware, in no acute distress HEENT: Normocephalic, no evidence of trauma CV: RRR, no murmurs, rubs, or gallops Pulm: CTA bilaterally with no rhonchi, rales, wheezes ABD: Nontender, no swelling, guarding, or rebound tenderness Psych, appropriate mood and affect General General appearance: alert Respiratory Respiratory exam: Present normal lung sounds bilaterally Cardiovascular Cardiovascular exam: Present regular rate Neurological Exam Neurological exam: Present alert Medical Decision Making Medical Records Screening: Per USPSTF and CDC recommendations, given the prevalence of disease in our region, it is our hospital?s policy to screen for HIV and viral Hepatitis for all patients aged 18 and over and those with ongoing risk factors. [place] Inquiry Pt receiving controlled substance: No Vital Signs: 02/09/25 20:19 02/09/25 21:41 02/09/25 21:42 Temperature 98.2 F Temperature Source Oral Pulse Rate 101 H Pulse Rate [Right Radial] 84 Respiratory Rate 18 Blood Pressure 105/71 L Blood Pressure [Right Arm] 195/131 H Blood Pressure Mean 82 Blood Pressure Mean [Right Arm] 152 Blood Pressure Source [Right Arm] Automatic Cuff Blood Pressure Position [Right Arm] Sitting 02 Sat by Pulse Oximetry 100 100 Oxygen Delivery Method Room Air Room Air Lab Data Lab Results 02/09/25 20:48: WBC 13.8 H, RBC 4.87, Hgb 13.9 L, Hct 41.7 L, MCV 85.6, MCH 28.5, MCHC 33.3, RDW 12.8, Plt Count 386, MPV 9.1, Neut % (Auto) 67.1, Lymph % (Auto) 25.1, Hunt % (Auto) 6.5, Eos % (Auto) 0.6, Baso % (Auto) 0.4, Neut # (Auto) 9.3 H, Lymph # (Auto) 3.5, Hunt # (Auto) 0.9, Eos # (Auto) 0.1, Baso # (Auto) 0.1, PT 11.7, INR 1.06, APTT 28.2, Sodium 136, Potassium 4.0, Chloride 102, Carbon Dioxide 24, Anion Gap 14.0, BUN 15, Creatinine 0.90, Estimated Creat Clear 146, Estimated GFR 103, Est GFR ( Amer) 124, Glucose 162 H, Calcium 8.9, Magnesium 1.9, Total Bilirubin 0.6, AST 29, ALT 35, Alkaline Phosphatase 84, Total Protein 6.9, Albumin 3.5, Globulin 3.4 H, Albumin/Globulin Ratio 1.0 L 02/09/25 20:48 02/09/25 20:48 Orders (Tests/Meds): ED MEDICATIONS Discontinued Medications Generic Name Dose Route Start Last Admin Trade Name Freq PRN Reason Stop Dose Admin Sodium Chloride 1,000 mls @ 999 mls/hr 02/09/25 20:42 02/09/25 20:58 Sod Chlor 0.9% 1000ml Bag IV 02/09/25 21:42 999 mls/hr .Q1H1M ONE Administration Ondansetron HCl 4 mg 02/09/25 20:42 02/09/25 20:58 Ondansetron 4mg/2ml Vial IV 02/09/25 20:43 4 mg ONCE ONE Administration ORDERS Category Date Time Status CBC w/Auto Diff [Complete Blood Count Auto Diff] Stat Lab 02/09/25 20:48 Completed CMP [Comprehensive Metabolic Panel] Stat Lab 02/09/25 20:48 Completed Magnesium Stat Lab 02/09/25 20:48 Completed PT/PTT Stat Lab 02/09/25 20:48 Completed Urinalysis and Microscopic Stat Lab 02/09/25 20:42 Ordered Medical Decision Narrative: Initial impression of presenting illness: 24-year-old male presents to the emergency department stating that he has been vomiting blood. He reports that he was getting a tattoo earlier when he started to not feel well. He states that he went to the restroom and vomited up dark red blood clots. He also reports that he has had blood on the tissue after blowing his nose for the past couple of days. He denies coffee-ground emesis, melena, bright red blood per rectum. He denies fevers or diarrhea. He states he does still feel nauseous. Differential diagnosis includes but is not limited to: Gastritis, esophageal varices, epistaxis, Jade-Singh tear Patient arrives hemodynamically stable, afebrile, without respiratory distress with vital signs interpreted by myself. Initial physical exam unremarkable. Abdomen is soft nontender with normal active bowel sounds. Lung sounds are clear bilaterally. No evidence of nasal trauma or nasal bleeding at this time Initial diagnostic plan: Laboratory studies including urinalysis, normal saline bolus for hydration, Zofran for nausea Results from initial plan were reviewed and interpreted by myself, pertinent positives include: White blood cell count 13.8, rest of laboratory studies were nonactionable. Patient has not been able to give us a urine sample during his ER stay Interventions in the ED: Patient was given normal saline bolus for hydration as well as Zofran for nausea. Patient was made aware of the results and the findings, upon reevaluation patient has remained stable throughout stay, symptoms remain stable. Patient has not had any episodes of vomiting or diarrhea during his ER stay. His vital signs remained stable. Patient appears to be resting comfortably in bed with no signs of acute distress. Consultation/discussion with other physicians: Spoke with GI provider Dr. Cabral regarding patient's presenting complaint and workup findings. He recommended admitting patient to the hospital tonight so that he can get an upper GI scope tomorrow. I then spoke with hospitalist CRYSTAL Delgado who is agreeable to admit patient to [facility] for further workup Disposition: Reviewed the finding today's workup with patient and informed him that they would like to admit for GI scope tomorrow advised him that he will need to be n.p.o. at midnight. Patient was agreeable to the admission. Critical Care Critical Care Time Critical Care Time: No
[2025-02-09 20:54] LABS: Hematocrit 41.7 % (42.0-52.0); Hemoglobin 13.9 g/dL (14.1-18.0); Immature Granulocytes % 0.3 %; Mean Corpuscular HGB Conc 33.3 g/dL (31.8-35.4); Mean Corpuscular Hemoglobin 28.5 pg (27.0-31.2); Mean Corpuscular Volume 85.6 fl (80-94); Nucleated Red Blood Cells % 0 %; Platelet Count 386 K/mm3 (142-424); Red Blood Count 4.87 M/mm3 (4.60-6.20); Red Cell Distribution Width-SD 39.8 fL; White Blood Count 13.8 K/mm3 (4.8-10.8)
[2025-02-09] MEDS: 0.9 % SODIUM CHLORIDE 1000ML 1,000 ML 999 ML IV (20:58)
[2025-02-09] MEDS: ONDANSETRON 4MG/2ML VIAL 4 MG IV (20:58)
[2025-02-09 21:06] LABS: Activated Partial Thrombo Time 28.2 seconds (22.8-30.6); INR 1.06 (0.9-1.1); Prothrombin Time 11.7 seconds (10.1-12.5)
[2025-02-09 21:07] LABS: Alanine Aminotransferase 35 U/L (12-78); Albumin Level 3.5 g/dl (3.5-5.0); Albumin/Globulin Ratio 1.0 (1.1-1.8); Alkaline Phosphatase 84 U/L (38-126); Anion Gap 14.0 mEq/L (5-15); Aspartate Amino Transferase 29 U/L (17-59); Bilirubin,Total 0.6 mg/dl (0.2-1.3); Blood Urea Nitrogen 15 mg/dl (9-20); Calcium 8.9 mg/dl (8.4-10.2); Carbon Dioxide 24 mmol/L (22.0-30.0); Chloride 102 mmol/L (98-107); Creatinine Clearance Estimated 146 mL/min (50-200); Creatinine,Serum 0.90 mg/dl (0.66-1.25); Estimated Glomerular Filt Rate 103 ml/min (>60); GFR (African American) 124 ML/MIN (>60); Globulin 3.4 g/dL (1.3-3.2); Glucose 162 mg/dl (74-100); Magnesium 1.9 mg/dl (1.6-2.3); Potassium 4.0 mmoL/L (3.5-5.1); Sodium 136 mmol/L (136-145); Total Protein,Serum 6.9 g/dl (6.3-8.2)
[2025-02-09 21:41] VITALS: PULSE 101; O2SAT 100
[2025-02-09 21:42] VITALS: BP 105/71
--- NOTE | 2025-02-09 22:11 | P.HP_ITS ---
<Statement entered by Ulysses Bradley MD - 02/15/25 15:41> Agree with plan of care as outlined by the PSYCHOLOGICAL EXAMINER. History of Present Illness *Admission Date: 02/09/25 *Reason for visit:: GI bleed *History of present illness: Patient is a 24-year-old male history significant prior heavy alcohol use, dental infection and minor ankle sprains, abdominal wall sprain. Presents to [facility] after an episode of vomiting, noted large bloody clots that were maroon in color. States he was getting a tattoo when this occurred. Reports this was an isolated incident. Has not had any repeat episodes. Denies history of vomiting blood or bloody stool. States prior to this episode he noticed some blood when blowing his nose. Otherwise reports no other known correlation. Reports prior heavy alcohol use. Reported between [id number] he was drinking about 1/5 of liquor daily. States he has been without alcohol for the past few years. Denies prior history of colonoscopy. Denies any known correlating or aggravating factors. Denies use of anticoagulation. Denies any abdominal pain nausea or vomiting or recent injury. ED provider discussed this case with GI services who agreed to see in consult.Patient is hemodynamically stable, alert and oriented. Hemoglobin stable. ED workup included laboratory studies. Significant studies included WBC 13.8 hemoglobin 13.9 glucose 162. PFSH [facility] Disclaimer: The information contained in this section may have been updated after the patient was seen, as this information can be updated by other users. Social History Smoking Status: Current every day smoker alcohol intake: former year quit: 2019 substance use type: marijuana and methamphetamine current occupational status: other Travel in the last 8 weeks?: None Have you lived/traveled outside US in past 30 days?: No Contact w/someone who lives/traveled outside US past 30 days?: No Exposure to someone with infectious disease in past 14 days?: No Do you have a fever (greater than 100.4 F or 38 C)?: No Have you tested positive for COVID-19?: No Exposed to someone with COVID-19 in past 14 days?: No Do you have a sore throat?: No Do you have a cough?: No Do you have any weakness?: No Are you experiencing any nausea/vomitting?: No Do you have any diarrhea?: No Are you experiencing any unusual bleeding?: No Do you have any muscle aches/pain?: No Do you have any abdominal pain?: No Are you experiencing loss of taste or smell?: No Other Medical History Have you received the Flu Vaccine for this season: Yes Have you received the Pneumonia Vaccine: No Review of Systems Review of Systems Review of systems:: pertinent systems reviewed and negative unless documented below Constitutional Constitutional: Reports system reviewed and no additional complaints, except as documented Eyes Eyes: Reports system reviewed and no additional complaints, except as documented ENT Ears, Nose, Mouth, and Throat: Reports system reviewed and no additional complaints, except as documented *Cardiovascular Cardiovascular: Reports system reviewed and no additional complaints, except as documented *Respiratory Respiratory: Reports system reviewed and no additional complaints, except as documented *Gastrointestinal Gastrointestinal: Reports hematemesis *Genitourinary Genitourinary: Reports system reviewed and no additional complaints, except as documented *Musculoskeletal Musculoskeletal: Reports system reviewed and no additional complaints, except as documented Integumentary/Breasts Skin/Breast: Reports system reviewed and no additional complaints, except as documented *Neurologic Neurologic: Reports system reviewed and no additional complaints, except as documented Psychiatric Psychiatric: Reports system reviewed and no additional complaints, except as documented Endocrine Endocrine: Reports system reviewed and no additional complaints, except as documented Hematologic/Lymphatic Hematologic/Lymphatic: Reports system reviewed and no additional complaints, except as documented Allergic/Immunologic Allergic/Immunologic: Reports system reviewed and no additional complaints, except as documented Meds Home Medications and Allergies Home Medications ?Medication ?Instructions ?Recorded ?Confirmed ?Type No Known Home Medications 02/09/2501/15 History New Prescriptions to Start Prescriptions: Allergies Allergy/AdvReac Type Severity Reaction Status Date / Time acetaminophen (From Vicodin) Allergy Verified 09/15/21 14:10 diclofenac (From Voltaren) Allergy Verified 02/14/23 13:05 hydrocodone (From Vicodin) Allergy Verified 09/15/21 14:10 Exam Data for Last 24 hours Vital signs and Labs for Last 24 Hours: Temp Pulse Resp BP Pulse Ox O2 Del Method 98.2 F 101 H 18 105/71 L 100 Room Air 02/09/25 20:19 02/09/25 21:41 02/09/25 20:19 02/09/25 21:42 02/09/25 21:41 02/09/25 21:41 Laboratory Results - last 24 hr 02/09/25 20:48: WBC 13.8 H, RBC 4.87, Hgb 13.9 L, Hct 41.7 L, MCV 85.6, MCH 28.5, MCHC 33.3, RDW 12.8, Plt Count 386, MPV 9.1, Neut % (Auto) 67.1, Lymph % (Auto) 25.1, [place]yman % (Auto) 6.5, Eos % (Auto) 0.6, Baso % (Auto) 0.4, Neut # (Auto) 9.3 H, Lymph # (Auto) 3.5, [place]yman # (Auto) 0.9, Eos # (Auto) 0.1, Baso # (Auto) 0.1, PT 11.7, INR 1.06, APTT 28.2, Sodium 136, Potassium 4.0, Chloride 102, Carbon Dioxide 24, Anion Gap 14.0, BUN 15, Creatinine 0.90, Estimated Creat Clear 146, Estimated GFR 103, Est GFR ( Amer) 124, Glucose 162 H, Calcium 8.9, Magnesium 1.9, Total Bilirubin 0.6, AST 29, ALT 35, Alkaline Phosphatase 84, Total Protein 6.9, Albumin 3.5, Globulin 3.4 H, Albumin/Globulin Ratio 1.0 L I & O for Last 24 hours: Intake & Output 02/06/25 02/07/25 02/08/25 02/09/25 23:59 23:59 23:59 23:59 Weight 149.685 kg Constitutional Constitutional: no acute distress *Routine HEENT Exam Head: Present normocephalic and atraumatic Eye: Present EOMI and PERRL ENT: Present mucous membranes moist *Routine Neck Exam Neck: Present supple and full ROM *Routine Respiratory Exam Respiratory: Present normal respiratory effort *Routine Cardiovascular Exam Cardiovascular: Present RRR, Normal S1 and Normal S2 *Routine Abdominal Exam Abdominal: Present soft and normoactive bowel sounds *Routine Rectal Exam Rectal:: deferred *Routine Genitalia Exam Genitalia:: deferred *Routine Skin Exam Skin: Present intact *Routine Neurological Exam Neurological: Present alert, oriented X3 and CN II-XII intact Routine Psychiatric Exam Psychiatric: Present normal affect Assessment and Plan *Assessment and plan (1) Acute upper gastrointestinal bleeding: Status: Acute Category: Medical Code(s): K92.2 - Gastrointestinal hemorrhage, unspecified (2) History of alcohol use: Status: Acute Category: Medical Code(s): Z87.898 - Personal history of other specified conditions Plan 1. Acute upper gastrointestinal bleed: Hemoglobin stable 13, hemodynamically stable. Continue to monitor for any bleeding. N.p.o. after midnight, IV fluids, PPI twice daily, CBC with morning labs. Consult placed to GI, appreciate further/evaluation. 2. History of alcohol use: Patient reports prior heavy alcohol use between 4694-7715. Patient reported drinking about 1/5 of liquor a day. Denies any current or relatively recent use of alcohol. 2. DVT prophylaxis: SCD's I personally discussed the management of this patient with the emergency department provider. Provider discussed case with GI services who agreed to see patient valuation due to possible acute gastrointestinal bleed.
--- NOTE | 2025-02-09 22:38 | PC.NURSE ---
Patient arrived to floor via [phone]
[2025-02-09 22:45] VITALS: BP 115/54; PULSE 103; TEMP 37; O2SAT 94
[2025-02-09 22:48] VITALS: BP 115/54; PULSE 103; RESP 16; TEMP 37; O2SAT 94
[2025-02-10] VITALS (10 sets, daily range): BP systolic 121–155; BP diastolic 48–88; PULSE 69–90; RESP 14–20; TEMP 36.8–37.1; O2SAT 94–98; BMI 42.3
[2025-02-10] MEDS: 0.9 % SODIUM CHLORIDE 1000ML 1,000 ML 100 ML IV (04:41)
[2025-02-10 06:06] LABS: Hematocrit 37.9 % (42.0-52.0); Immature Granulocytes % 0.4 %; Mean Corpuscular HGB Conc 32.5 g/dL (31.8-35.4); Mean Corpuscular Hemoglobin 28.4 pg (27.0-31.2); Mean Corpuscular Volume 87.5 fl (80-94); Nucleated Red Blood Cells % 0 %; Platelet Count 317 K/mm3 (142-424); Red Blood Count 4.33 M/mm3 (4.60-6.20); Red Cell Distribution Width-SD 41.1 fL; White Blood Count 11.6 K/mm3 (4.8-10.8)
[2025-02-10 06:16] LABS: Hemoglobin 12.8 g/dL (14.1-18.0)
[2025-02-10 06:17] LABS: Anion Gap 11.2 mEq/L (5-15); Blood Urea Nitrogen 15 mg/dl (9-20); Calcium 8.6 mg/dl (8.4-10.2); Carbon Dioxide 25 mmol/L (22.0-30.0); Chloride 104 mmol/L (98-107); Creatinine Clearance Estimated 146 mL/min (50-200); Creatinine,Serum 0.90 mg/dl (0.66-1.25); Estimated Glomerular Filt Rate 103 ml/min (>60); GFR (African American) 124 ML/MIN (>60); Glucose 129 mg/dl (74-100); Potassium 4.2 mmoL/L (3.5-5.1); Sodium 136 mmol/L (136-145)
--- NOTE | 2025-02-10 07:59 | EXP.GE.CONS ---
History of Present Illness *Admission Date: 02/09/25 *History of present illness: Mr. Dow is a 24-year-old gentleman who is admitted with hematemesis. He presented with vomiting of maroon blood and bloody clots that began yesterday between 7 and 7:30 PM. He did report some pain across the epigastrium towards the right side. He has never had any GI bleeding. He does report that he previously used alcohol very heavily for 2 to 3 years and was drinking 2 or 3 1 fifths of alcohol daily. He stopped doing this in 2019. He was told at 1 point that he had cirrhosis but after further questioning he states that he had a fatty liver and this was at the hospital in [facility]. The patient had been using ibuprofen. The patient reports no melena. He did not have any imaging in the ED. His hemoglobin and hematocrit dropped slightly from initial presentation yesterday of 13.9 and 41.7 and today hemoglobin and hematocrit were 12.8 and 37.9. He does not have thrombocytopenia and his coags were normal. He also had normal liver chemistries (AST 29, ALT 35, alkaline phosphatase 84 and total bilirubin 0.6). [facility] Disclaimer: The information contained in this section may have been updated after the patient was seen, as this information can be updated by other users. Social History Smoking Status: Current every day smoker alcohol intake: former year quit: 2019 substance use type: marijuana and methamphetamine current occupational status: other Travel in the last 8 weeks?: None Have you lived/traveled outside US in past 30 days?: No Contact w/someone who lives/traveled outside US past 30 days?: No Exposure to someone with infectious disease in past 14 days?: No Do you have a fever (greater than 100.4 F or 38 C)?: No Have you tested positive for COVID-19?: No Exposed to someone with COVID-19 in past 14 days?: No Do you have a sore throat?: No Do you have a cough?: No Do you have any weakness?: No Are you experiencing any nausea/vomitting?: No Do you have any diarrhea?: No Are you experiencing any unusual bleeding?: No Do you have any muscle aches/pain?: No Do you have any abdominal pain?: No Are you experiencing loss of taste or smell?: No Review of Systems *Neurologic Neurologic: Reports system reviewed and no additional complaints, except as documented Meds Home Medications and Allergies Home Medications ?Medication ?Instructions ?Recorded ?Confirmed ?Type No Known Home Medications 02/09/25 02/09/25 History New Prescriptions to Start Prescriptions: Allergies Allergy/AdvReac Type Severity Reaction Status Date / Time acetaminophen (From Vicodin) Allergy Verified 09/15/21 14:10 diclofenac (From Voltaren) Allergy Verified 02/14/23 13:05 hydrocodone (From Vicodin) Allergy Verified 09/15/21 14:10 Exam (Inpt) Vital signs and Labs for Last 24 Hours: Temp Pulse Resp BP Pulse Ox O2 Del Method 98.4 F 89 18 155/88 H 98 Room Air 02/10/25 07:25 02/10/25 07:25 02/10/25 07:25 02/10/25 07:25 02/10/25 07:25 02/10/25 07:25 Laboratory Results - last 24 hr 02/09/25 20:48: WBC 13.8 H, RBC 4.87, Hgb 13.9 L, Hct 41.7 L, MCV 85.6, MCH 28.5, MCHC 33.3, RDW 12.8, Plt Count 386, MPV 9.1, Neut % (Auto) 67.1, Lymph % (Auto) 25.1, [place] % (Auto) 6.5, Eos % (Auto) 0.6, Baso % (Auto) 0.4, Neut # (Auto) 9.3 H, Lymph # (Auto) 3.5, [place] # (Auto) 0.9, Eos # (Auto) 0.1, Baso # (Auto) 0.1, PT 11.7, INR 1.06, APTT 28.2, Sodium 136, Potassium 4.0, Chloride 102, Carbon Dioxide 24, Anion Gap 14.0, BUN 15, Creatinine 0.90, Estimated Creat Clear 146, Estimated GFR 103, Est GFR ( Amer) 124, Glucose 162 H, Calcium 8.9, Magnesium 1.9, Total Bilirubin 0.6, AST 29, ALT 35, Alkaline Phosphatase 84, Total Protein 6.9, Albumin 3.5, Globulin 3.4 H, Albumin/Globulin Ratio 1.0 L 02/10/25 05:25: WBC 11.6 H, RBC 4.33 L, Hgb 12.8 L, Hct 37.9 L, MCV 87.5, MCH 28.4, MCHC 32.5, RDW 12.9, Plt Count 317, MPV 9.2, Neut % (Auto) 62.2, Lymph % (Auto) 28.3, [place] % (Auto) 7.1, Eos % (Auto) 1.6, Baso % (Auto) 0.4, Neut # (Auto) 7.2, Lymph # (Auto) 3.3, [place] # (Auto) 0.8, Eos # (Auto) 0.2, Baso # (Auto) 0.1, Sodium 136, Potassium 4.2, Chloride 104, Carbon Dioxide 25, Anion Gap 11.2, BUN 15, Creatinine 0.90, Estimated Creat Clear 146, Estimated GFR 103, Est GFR ( Amer) 124, Glucose 129 H D, Calcium 8.6 I & O for Labs for Last 24 Hours: Intake & Output 02/07/25 02/08/25 02/09/25 02/10/25 23:59 23:59 23:59 23:59 Intake Total 1000 / 1000 Balance 1000 / 1000 Weight 330 lb 329 lb 15.983 oz GI: Present soft Comments:: Normoactive bowel sounds, soft, nondistended, nontender, benign abdomen Results Labs 02/10/25 05:25 02/10/25 05:25 Labs: Laboratory Results - last 24 hr 02/09/25 20:48: WBC 13.8 H, RBC 4.87, Hgb 13.9 L, Hct 41.7 L, MCV 85.6, MCH 28.5, MCHC 33.3, RDW 12.8, Plt Count 386, MPV 9.1, Neut % (Auto) 67.1, Lymph % (Auto) 25.1, [place] % (Auto) 6.5, Eos % (Auto) 0.6, Baso % (Auto) 0.4, Neut # (Auto) 9.3 H, Lymph # (Auto) 3.5, [place] # (Auto) 0.9, Eos # (Auto) 0.1, Baso # (Auto) 0.1, PT 11.7, INR 1.06, APTT 28.2, Sodium 136, Potassium 4.0, Chloride 102, Carbon Dioxide 24, Anion Gap 14.0, BUN 15, Creatinine 0.90, Estimated Creat Clear 146, Estimated GFR 103, Est GFR ( Amer) 124, Glucose 162 H, Calcium 8.9, Magnesium 1.9, Total Bilirubin 0.6, AST 29, ALT 35, Alkaline Phosphatase 84, Total Protein 6.9, Albumin 3.5, Globulin 3.4 H, Albumin/Globulin Ratio 1.0 L 02/10/25 05:25: WBC 11.6 H, RBC 4.33 L, Hgb 12.8 L, Hct 37.9 L, MCV 87.5, MCH 28.4, MCHC 32.5, RDW 12.9, Plt Count 317, MPV 9.2, Neut % (Auto) 62.2, Lymph % (Auto) 28.3, [place] % (Auto) 7.1, Eos % (Auto) 1.6, Baso % (Auto) 0.4, Neut # (Auto) 7.2, Lymph # (Auto) 3.3, [place] # (Auto) 0.8, Eos # (Auto) 0.2, Baso # (Auto) 0.1, Sodium 136, Potassium 4.2, Chloride 104, Carbon Dioxide 25, Anion Gap 11.2, BUN 15, Creatinine 0.90, Estimated Creat Clear 146, Estimated GFR 103, Est GFR ( Amer) 124, Glucose 129 H D, Calcium 8.6 Assessment and Plan *Assessment and plan (1) Hematemesis: Status: Acute Category: Medical Code(s): K92.0 - Hematemesis (2) Acute upper gastrointestinal bleeding: Status: Acute Category: Medical Code(s): K92.2 - Gastrointestinal hemorrhage, unspecified Plan 1. Hematemesis/acute upper GI bleed. The patient has had no melena but has had some decline in hemoglobin/hematocrit. Given his former history of alcohol and a reported history of cirrhosis, we will plan EGD today for further evaluation.
[2025-02-10] MEDS: SODIUM CHLORIDE 0.9% 10ML VIAL 10 ML IV (09:04)
[2025-02-10] MEDS: PANTOPRAZOLE 40MG VIAL 40 MG IV (09:04)
[2025-02-10] MEDS: LACTATED RINGERS 1000ML 1,000 ML 50 ML IV (11:49)
--- NOTE | 2025-02-10 11:54 | EXP.ANES.CKL ---
[facility] Disclaimer: The information contained in this section may have been updated after the patient was seen, as this information can be updated by other users. Social History Smoking Status: Current every day smoker alcohol intake: former year quit: 2019 substance use type: marijuana and methamphetamine current occupational status: other Travel in the last 8 weeks?: None Have you lived/traveled outside [place] in past 30 days?: No Contact w/someone who lives/traveled outside US past 30 days?: No Exposure to someone with infectious disease in past 14 days?: No Do you have a fever (greater than 100.4 F or 38 C)?: No Have you tested positive for COVID-19?: No Exposed to someone with COVID-19 in past 14 days?: No Do you have a sore throat?: No Do you have a cough?: No Do you have any weakness?: No Are you experiencing any nausea/vomitting?: No Do you have any diarrhea?: No Are you experiencing any unusual bleeding?: No Do you have any muscle aches/pain?: No Do you have any abdominal pain?: No Are you experiencing loss of taste or smell?: No [facility] Anesthesia Checklist Patient Identification Patient Identification: Arm Band and Verbal (Name & ) Structural Data Admitted From: Home Planned Operative Procedure/s: EGD Consent for Planned Operative Procedure(s) Verified: Yes Verified Documents: Surgical Consent and History and Physical NPO Status Verified Time NPO: 00:00 Additional verifications Anesthesia Reactions: No Previous Colonoscopy: No Airway Assessment Mallampati Score:: Class II Dentition: Good Dentition Neurological Assessment Level of Consciousness: Awake, Alert and Appropriate Hx Seizures: No Numbness or tingling in extremities: No Anesthesia Plan Anesthesia Risk discussed: Yes Anesthesia Plan: Verified ASA Class: II Anesthesia Type: MAC
--- NOTE | 2025-02-10 12:18 | HMH.PROCNOTE ---
[facility] Procedure Note Date: 02/10/25 Time: 12:32 Procedure Note:: Upper Endoscopy Procedure Report: Esophagogastroduodenoscopy with cold biopsies Endoscopost: Mina Cabral II, MD Referring Physician: Juan David Livingston MD Date of Procedure: February 10, 2025 Equipment: Olympus GIF-1100 standard upper endoscope Sedation: MAC sedation Indications: Mr. Dow is a 24-year-old gentleman who is here for diagnostic inpatient EGD. He was admitted with hematemesis. He presented with vomiting of maroon blood and bloody clots that began yesterday between 7 and 7:30 PM. The patient was getting a tattoo when this occurred. He did report some pain across the epigastrium towards the right side. He has never had any GI bleeding. He does report that he previously used alcohol very heavily for 2 to 3 years and was drinking 2 or 3 1 fifths of alcohol daily. He stopped doing this in 2019. He was told at 1 point that he had cirrhosis but after further questioning he states that he had a fatty liver and this was at the hospital in [facility]. The patient had been using ibuprofen. The patient reports no melena. He did not have any imaging in the ED. His hemoglobin and hematocrit dropped slightly from initial presentation yesterday of 13.9 and 41.7 and today hemoglobin and hematocrit were 12.8 and 37.9. He does not have thrombocytopenia and his coags were normal. He also had normal liver chemistries (AST 29, ALT 35, alkaline phosphatase 84 and total bilirubin 0.6). Procedure: Prior to the procedure, a history and physical exam was performed, and patient's medications and allergies were reviewed. The risks, benefits and alternatives of the sedation and procedure were discussed with the patient. All questions were answered and informed consent was obtained. The patient was brought to the procedure room. Patient identification and proposed procedure were verified by the physician and the nurse. The patient was placed in a left lateral decubitus position and the scope was passed under direct vision. Throughout the procedure, the patient's blood pressure, pulse, and oxygen saturations were monitored continuously. The upper GI endoscopy was accomplished without difficulty. The patient tolerated the procedure well. Findings: The scope was passed directly into the upper esophagus and advanced to the third portion of the duodenum. The post bulbar duodenum and duodenal bulb were normal with normal mucosa and conniventes. There are couple of tiny punctate angiodysplasias in the duodenal bulb. There were no ulcers. The scope was withdrawn through a normal duodenal bulb and pylorus into the stomach. There was minimal antral gastropathy. Cold biopsies were obtained. The body and fundus in the stomach were grossly normal. There were no ulcerations of the stomach and there was no heme identified. The scope was then withdrawn into the esophagus. At the GE junction was a linear superficial ulcer which is on the lesser curvature aspect. This is a Jade-Singh tear and there was a very small associated sliding hiatal hernia. There was no visible vessel or any active pain. There was no evidence of reflux esophagitis or Quick's. There were no esophageal or gastric varices. There was no portal gastropathy or GAVE. The remainder of the esophageal mucosa was normal. Impression: 1. Jade-Singh tear Plan: The patient did have acute upper GI bleeding with hematemesis secondary to the Jade-Singh tear. I would recommend oral omeprazole for 4 weeks and antiemetics if needed for nausea. The patient can advance his diet and go home today.
--- NOTE | 2025-02-10 12:56 | P.DS_ITS ---
<Statement entered by Ulysses Bradley MD - 02/15/25 15:35> Agree with plan of care as outlined by the REGISTERED NURSE MATERNITY. General Admission date:: 02/09/25 Discharge date: 02/10/25 HPI HPI HPI: Mr. Dow is a 24-year-old gentleman who is admitted with hematemesis. He presented with vomiting of maroon blood and bloody clots that began yesterday between 7 and 7:30 PM. He did report some pain across the epigastrium towards the right side. He has never had any GI bleeding. He does report that he previously used alcohol very heavily for 2 to 3 years and was drinking 2 or 3 1 fifths of alcohol daily. He stopped doing this in 2019. He was told at 1 point that he had cirrhosis but after further questioning he states that he had a fatty liver and this was at the hospital in [facility]. The patient had been using ibuprofen. The patient reports no melena. He did not have any imaging in the ED. His hemoglobin and hematocrit dropped slightly from initial presentation yesterday of 13.9 and 41.7 and today hemoglobin and hematocrit were 12.8 and 37.9. He does not have thrombocytopenia and his coags were normal. He also had normal liver chemistries (AST 29, ALT 35, alkaline phosphatase 84 and total bilirubin 0.6). Hospital Course Hospital Course Hospital Course: Mr. Dow is a 24-year-old male who originally presented to the emergency department yesterday due to vomiting of large amounts of blood and clots. He denied melena, bright red bleeding per rectum, abdominal pain, nausea, vomiting. Patient was admitted to the medical surgical floor for further evaluation of hemoptysis. On admission hemoglobin stable at 13. Patient remained hemodynamically stable. Patient was given IV fluids for hydration. Made n.p.o. for possible procedure. GI was consulted and recommendations for upper endoscopy were made. Patient does endorse a history of heavy alcohol use, but states he has not drank alcohol in approximately 5 years. He does endorse using NSAIDs regularly. Patient taken today for EGD. Was found to have a Jade-Singh tear, no active bleeding noted. Recommendations for omeprazole 40 mg daily for 4 weeks and antiemetics as needed. Patient discharged home with omeprazole 40 mg daily and Zofran 4 mg every 8 hours as needed for nausea. Patient able to tolerate full liquid diet prior to discharge without issues. Patient should follow with GI in approximately 1 month for continued evaluation. Exam Data for Last 24 hours Vital signs and Labs for Last 24 Hours: Temp Pulse Resp BP Pulse Ox O2 Del Method 98.7 F 79 16 135/76 94 L Room Air 02/10/25 11:21 02/10/25 12:32 02/10/25 12:32 02/10/25 12:32 02/10/25 12:32 02/10/25 12:32 Laboratory Results - last 24 hr 02/09/25 20:48: WBC 13.8 H, RBC 4.87, Hgb 13.9 L, Hct 41.7 L, MCV 85.6, MCH 28.5, MCHC 33.3, RDW 12.8, Plt Count 386, MPV 9.1, Neut % (Auto) 67.1, Lymph % (Auto) 25.1, [place] % (Auto) 6.5, Eos % (Auto) 0.6, Baso % (Auto) 0.4, Neut # (Auto) 9.3 H, Lymph # (Auto) 3.5, [place] # (Auto) 0.9, Eos # (Auto) 0.1, Baso # (Auto) 0.1, PT 11.7, INR 1.06, APTT 28.2, Sodium 136, Potassium 4.0, Chloride 102, Carbon Dioxide 24, Anion Gap 14.0, BUN 15, Creatinine 0.90, Estimated Creat Clear 146, Estimated GFR 103, Est GFR ( Amer) 124, Glucose 162 H, Calcium 8.9, Magnesium 1.9, Total Bilirubin 0.6, AST 29, ALT 35, Alkaline Phosphatase 84, Total Protein 6.9, Albumin 3.5, Globulin 3.4 H, Albumin/Globulin Ratio 1.0 L 02/10/25 05:25: WBC 11.6 H, RBC 4.33 L, Hgb 12.8 L, Hct 37.9 L, MCV 87.5, MCH 28.4, MCHC 32.5, RDW 12.9, Plt Count 317, MPV 9.2, Neut % (Auto) 62.2, Lymph % (Auto) 28.3, [place] % (Auto) 7.1, Eos % (Auto) 1.6, Baso % (Auto) 0.4, Neut # (Au to) 7.2, Lymph # (Auto) 3.3, [place] # (Auto) 0.8, Eos # (Auto) 0.2, Baso # (Auto) 0.1, Sodium 136, Potassium 4.2, Chloride 104, Carbon Dioxide 25, Anion Gap 11.2, BUN 15, Creatinine 0.90, Estimated Creat Clear 146, Estimated GFR 103, Est GFR ( Amer) 124, Glucose 129 H D, Calcium 8.6 I & O for Last 24 hours: Intake & Output 02/07/25 02/08/25 02/09/25 02/10/25 23:59 23:59 23:59 23:59 Intake Total 1000 / 1000 Output Total 0 / 0 Balance 1000 / 1000 0 / 0 Weight 149.685 kg 149.685 kg Constitutional Constitutional: no acute distress *Routine HEENT Exam Head: Present normocephalic Eye: Present EOMI and PERRL ENT: Present mucous membranes moist *Routine Neck Exam Neck: Present supple; Absent lymphadenopathy *Routine Respiratory Exam Respiratory: Present CTA bilaterally *Routine Cardiovascular Exam Cardiovascular: Present RRR *Routine Abdominal Exam Abdominal: Present soft and normoactive bowel sounds; Absent tenderness *Routine Extremities Exam Extremities: Absent cyanosis, clubbing or edema *Routine Skin Exam Skin: Present warm; Absent rash *Routine Neurological Exam Neurological: Present alert and oriented X3 Results Data Completed and Pending Labs on day of discharge: Labs from last 24 hours 02/10/25 02/09/25 05:25 20:48 WBC 11.6 H 13.8 H RBC 4.33 L 4.87 Hgb 12.8 L 13.9 L Hct 37.9 L 41.7 L MCV 87.5 85.6 MCH 28.4 28.5 MCHC 32.5 33.3 RDW 12.9 12.8 Plt Count 317 386 MPV 9.2 9.1 Neut % (Auto) 62.2 67.1 Lymph % (Auto) 28.3 25.1 [place] % (Auto) 7.1 6.5 Eos % (Auto) 1.6 0.6 Baso % (Auto) 0.4 0.4 Neut # (Auto) 7.2 9.3 H Lymph # (Auto) 3.3 3.5 [place] # (Auto) 0.8 0.9 Eos # (Auto) 0.2 0.1 Baso # (Auto) 0.1 0.1 PT 11.7 INR 1.06 APTT 28.2 Sodium 136 136 Potassium 4.2 4.0 Chloride 104 102 Carbon Dioxide 25 24 Anion Gap 11.2 14.0 BUN 15 15 Creatinine 0.90 0.90 Estimated Creat Clear 146 146 Estimated GFR 103 103 Est GFR ( Amer) 124 124 Glucose 129 H D 162 H Calcium 8.6 8.9 Magnesium 1.9 Total Bilirubin 0.6 AST 29 ALT 35 Alkaline Phosphatase 84 Total Protein 6.9 Albumin 3.5 Globulin 3.4 H Albumin/Globulin Ratio 1.0 L DS: Diagnosis Discharge Diagnosis (1) Hematemesis: Status: Acute Code(s): K92.0 - Hematemesis (2) Acute upper gastrointestinal bleeding: Status: Acute Code(s): K92.2 - Gastrointestinal hemorrhage, unspecified (3) Jade-Singh tear: Status: Acute Code(s): K22.6 - Gastro-esophageal laceration-hemorrhage syndrome Meds Home Medications and Allergies Home Medications ?Medication ?Instructions ?Recorded ?Confirmed ?Type omeprazole 40 mg capsule,delayed 40 mg PO DAILY #30 ca ps 02/10/25 Rx release ondansetron 4 mg disintegrating 4 mg PO Q8H PRN nausea and 02/10/25 Rx tablet vomiting #10 tabs New Prescriptions to Start Prescriptions: omeprazole Latisha Nance ondansetron Latisha Nance Allergies Allergy/AdvReac Type Severity Reaction Status Date / Time acetaminophen (From Vicodin) Allergy Nausea Verified 02/10/25 11:53 diclofenac (From Voltaren) Allergy Nausea Verified 02/10/25 11:53 hydrocodone (From Vicodin) Allergy Vomiting Verified 02/10/25 11:53 Discharge Plan Disposition Patient Disposition: Home, Self-Care Condition: Good Follow up Plan Follow up with: Mina Cabral II, MD [Staff Physician, Gastroenterology] - Enter time for follow up Referral Note: 4 weeks Prescriptions/Medication Reconciliation: New omeprazole 40 mg capsule,delayed release(DR/EC) 40 mg PO DAILY Qty: 30 0RF ondansetron 4 mg tablet,disintegrating 4 mg PO Q8H PRN (Reason: nausea and vomiting) Qty: 10 0RF Problem Reconciliation Problems Reviewed?: Yes Patient Discharge Instructions ACTIVITY: No heavy lifting DIET: advance to your usual diet Patient Instructions: DI for Gastrointestinal Bleeding Print Language: Dominican Providers Primary Care Provider: Provider,Referral Admit Provider: Juan David Livingston Attending Provider: Juan David Livingston
--- NOTE | 2025-02-11 10:07 | SW/DCPLANNER ---
Spoke with patient on the phone. Patient stated that he is doing well. Patient stated that he is aware of his upcoming appointments. Patient stated that he was able to get his medicine and that it was delivered to his room before he was discharged. Patient stated that he has no concerns or questions at this time. Bruce Fontenot
== END 2025-02-10 15:08 | disposition home or self-care (01) ==
LOC: ER 22:02 → 2ND 22:05
PROVIDERS: Internal Medicine Gastroenterology; Nurse Practitioner Acute Care; Nurse Practitioner Family; Admitting Provider Family Medicine; Emergency Provider Student in an Organized Health Care Education/Training Program; Visit Provider Family Medicine
PROC: 0DJ08ZZ Inspection of Upper Intestinal Tract, Via Natural or Artificial Opening Endoscopic (ICD-10-PCS; principal; 2025-02-10 11:45)
DX: K22.6 Gastro-esophageal laceration-hemorrhage syndrome (principal); K74.60 Unspecified cirrhosis of liver; K31.89 Other diseases of stomach and duodenum; K44.9 Diaphragmatic hernia without obstruction or gangrene; Z88.6 Allergy status to analgesic agent; Z88.5 Allergy status to narcotic agent; Z79.899 Other long term (current) drug therapy
CPT/HCPCS: 43239; 36415; 80048; 80053; 83735; 85025; 85610; 85730; 96361; 96374; 99284; G0378; J2003; J2405; J2470; J2704; J7030; J7120